=== PATIENT | male | born 1995 | race Two or more races ===

== ENCOUNTER 2022-07-09 21:40 | Emergency (ER) | payer SELFPAY ==
[~2022-07-09] VITALS: Ht 172.7 cm; Wt 68.2 kg
[2022-07-09] MEDS ORDERED: LIDOCAINE/PF 1% 2 ML VIAL PERC ONE (22:30)
[2022-07-09] MEDS ORDERED: LIDOCAINE 1% 10 ML VIAL PERC ONE ×2 (22:30→22:45)
[2022-07-09] MEDS ORDERED: LIDOCAINE/PF 1% 5 ML VIAL PERC ONE (22:45)
[2022-07-09] MEDS ORDERED: NEOMYCIN/BACITRACIN/POLYMYXIN B OINTMENT PACKET TP ONE (23:00)
[2022-07-09 23:14] VITALS: BP 143/88
== END 2022-07-09 23:35 | disposition home or self-care (01) ==
LOC: EMS 21:42
DX: S61.012A Laceration without foreign body of left thumb without damage to nail, initial encounter (principal); Z88.0 Allergy status to penicillin; Z98.890 Other specified postprocedural states; W25.XXXA Contact with sharp glass, initial encounter; Y93.89 Activity, other specified; Y92.89 Other specified places as the place of occurrence of the external cause; Y99.8 Other external cause status
CPT/HCPCS: 99282; 12001; J3490; J2001